=== PATIENT | male | born 1955 | race Caucasian/White ===

== ENCOUNTER → 2018-03-07 15:04 | Outpatient (CLI) | payer OTHER, SELFPAY ==
--- NOTE | 2018-03-07 | DI.RAD.S_ITS ---
PROCEDURE: XR CHEST 2V INDICATIONS: SOB/ASTHMA TECHNIQUE: 2 views of the chest were acquired. COMPARISON: None. FINDINGS: Surgical changes and devices: None. Lungs and pleura: No pleural effusions or pneumothorax. Lungs are clear. Mediastinum: Mediastinal contours are normal. Heart size is normal. Bones and chest wall: No suspicious bony abnormalities. Soft tissues appear unremarkable. IMPRESSION: No acute cardiopulmonary disease. Dictated by: Tree Do M.D. on 03/07/2018 at 16:58 Approved by: Tree Do M.D. on 03/07/2018 at 16:58
== END ==
PROVIDERS: PCP Family Medicine; Visit Provider Family Medicine
DX: R06.02 Shortness of breath (principal)
CPT/HCPCS: 71046

== ENCOUNTER 2019-03-24 23:30 | Emergency (ER) | payer MEDICARE, OTHER, SELFPAY ==
[2019-03-24 23:37] VITALS: BP 166/90; PULSE 57; RESP 16; TEMP 36.2; O2SAT 97; BMI 30.1
--- NOTE | 2019-03-24 23:39 | DI.RAD.S_ITS ---
PROCEDURE: XR CHEST 1V INDICATIONS: chest pain TECHNIQUE: One view of the chest was acquired. COMPARISON: [facility], CR, XR CHEST 2V, 03/07/2018, 15:07. FINDINGS: Surgical changes and devices: None. Lungs and pleura: Lungs are clear. No pleural effusions or pneumothorax. Mediastinum: Mediastinal contours appear normal. Heart size is normal. Bones and chest wall: No suspicious bony lesions. Overlying soft tissues appear unremarkable. IMPRESSION: Normal for age, source of current chest pain symptoms is not seen. Dictated by: Eloy Cortes M.D. on 03/25/2019 at 8:53 Approved by: Eloy Cortes M.D. on 03/25/2019 at 8:53
--- NOTE | 2019-03-24 23:42 | ED.CHESTPAIN ---
HPI - Chest Pain General Chief Complaint: Chest Pain Stated Complaint: chest hurts, left arm pain, dont feel very good Time Seen by Provider: 03/24/19 23:33 Source: patient Mode of arrival: Ambulatory History of Present Illness HPI narrative: Patient is a 63-year-old male with history of hypertension. He states that he is presenting with chest discomfort radiating to his left arm he has noticed off and on for a while definitely worse with exertion. [place] notices it more [place] Today it was so bad that he had to stop he took the dog out for a walk this evening which is when he told his of his symptoms and was brought to the ED. It persisted when he laid down for bed he initially thought it was acid reflux he took some Tums which did not help. MD complaint: chest pain Duration: constant Onset: during exertion Pain location: left chest Severity: moderate Quality: aching Pain radiation: LUE Relieving factors: rest Exacerbating factors: exertion Related Data Home Medications Medication Instructions Recorded Confirmed atorvastatin 20 mg tablet 20 mg PO DAILY 11/19/17 02/12/19 losartan 100 mg tablet 100 mg PO DAILY 11/19/17 02/12/19 metoprolol tartrate 75 mg tablet 75 mg PO BID 11/19/17 02/12/19 omeprazole 20 mg capsule,delayed 20 mg PO DAILY 11/19/17 02/12/19 release Resmed Airsense 10 CPAP #1 ea 02/12/19 02/12/19 Allergies Allergy/AdvReac Type Severity Reaction Status Date / Time No Known Drug Allergies Allergy Verified 02/12/19 09:37 Review of Systems Review of Systems Narrative: GENERAL: Denies chills, fatigue, malaise, fever, sweats, travel HEENT: Denies sinus pain, ear pain, sore throat, difficulty swallowing, neck pain RESPIRATORY: Denies dyspnea, cough, wheezing, hemoptysis, sputum. CARDIOVASCULAR: See HPI GASTROINTESTINAL: Denies nausea, vomiting, abdominal pain, diarrhea, constipation, melena. : Denies dysuria, frequency, incontinence, hematuria, urinary retention, flank pain. MUSCULOSKELETAL: Denies weakness, joint pain, or bony pain SKIN: No rash, no erythema, no pruritus NEUROLOGIC: Denies weakness, dizziness, headache, numbness, change in speech, confusion PSYCHIATRIC: No concerning psychosocial issues. 12 point review of systems is negative except for those stated above and HPI Patient History Medical History Medical History Central sleep apnea (Chronic ~2008) GERD (gastroesophageal reflux disease) (Chronic) Hyperlipidemia (Chronic) Hypertension (Chronic) Restless leg syndrome, familial, uncontrolled (Suspected) Social History Social History marital status: details: to Adriane Weiss household members: spouse lives independently: Yes caregiver/support person: No housing: [facility] [employer]; go to [place] in April for 5 months. Smoking Status: Former smoker alcohol intake: current alcohol intake frequency: 0-2 drinks per day Alcohol type: beer Substance Use Type: does not use Exam Initial Vital Signs Initial Vital Signs: Vital Signs Temperature 97.1 F L 03/24/19 23:37 Pulse Rate 57 L 03/24/19 23:37 Respiratory Rate 16 03/24/19 23:37 Blood Pressure 166/90 H 03/24/19 23:37 Pulse Oximetry 97 03/24/19 23:37 GENERAL: Well-appearing, well-nourished and in no acute distress. HEENT: Head atraumatic,EOMI, pupils reactive, face symmetric CARDIOVASCULAR: Regular rate and rhythm without murmurs, rubs or gallops. RESPIRATORY: Breath sounds equal bilaterally, no wheezes rales or rhonchi. ABDOMEN: Soft, nontender. Normoactive bowel sounds all 4 quadrants. No guarding or rebound EXTREMITIES: Normal range of motion, no clubbing or edema. Neurovascularly intact NEUROLOGICAL: Alert and oriented x4.Normal gait and speech. SKIN: Warm, dry, no laceration, no petechiae, no rashes or lesions. Course Orders Ordered: ED Orders 03/24/19 23:39 XR chest 1V Stat EKG-12 Lead Stat 03/24/19 23:43 Complete Blood Count AUTO DIFF Stat Comprehensive Metabolic Panel Stat Lipase Stat Partial Thromboplastin Time Stat Troponin & CK Cardiac Panel Stat 03/25/19 05:00 Hemoglobin and Hematocrit DAILY 03/25/19 05:45 PTT [Partial Thromboplastin Time] Q6H 03/25/19 11:45 PTT [Partial Thromboplastin Time] Q6H 03/25/19 17:45 PTT [Partial Thromboplastin Time] Q6H Heparin Sodium/Dextrose (Heparin Drip) 25,000 unit in 500 mls @ 20 mls/hr IV CONT CEASAR; Protocol Last Titration: 03/25/19 00:07 Dose: 1,000 units/hr, 20 mls/hr Documented by: Admin: 03/24/19 23:44 Dose: 1,000 units/hr, 20 mls/hr Documented by: MCKAYLA Sodium Chloride (Normal Saline 0.9%) 1,000 mls @ 150 mls/hr IV CONT CEASAR Last Infusion: 03/25/19 00:30 Dose: 150 mls/hr Documented by: Admin: 03/24/19 23:57 Dose: 150 mls/hr Documented by: MCKAYLA Nitroglycerin (Nitrostat) 0.4 mg SL [id number] PRN PRN Reason: Chest Pain Last Admin: 03/25/19 00:00 Dose: 0.4 mg Documented by: Admin: 03/24/19 23:56 Dose: 0.4 mg Documented by: MCKAYLA Discontinued Medications Aspirin (Aspirin Chew) 324 mg PO NOW ONE Stop: 03/24/19 23:40 Last Admin: 03/24/19 23:45 Dose: 324 mg Documented by: MCKAYLA Clopidogrel Bisulfate (Plavix) 600 mg PO NOW ONE Stop: 03/24/19 23:50 Last Admin: 03/24/19 23:57 Dose: 600 mg Documented by: MCKAYLA Heparin Sodium (Porcine) (Heparin) 5,000 unit IV NOW ONE Stop: 03/24/19 23:40 Last Admin: 03/24/19 23:44 Dose: 5,000 unit Documented by: MCKAYLA Vital Signs Vital signs: Vital Signs - 8 hr 03/24/19 23:37 03/25/19 00:01 Temperature 97.1 F L Pulse Rate 57 L 65 Respiratory Rate 16 20 Blood Pressure 166/90 H Blood Pressure [Left Arm] 140/95 H Pulse Oximetry 97 97 MDM - Chest Pain Lab Data Attestation: I reviewed the patient's lab results. Result diagrams: 03/24/19 23:43 03/24/19 23:43 Labs: Lab Results 03/24/19 03/24/19 03/24/19 Range/Units 23:43 23:43 23:43 WBC 10.3 (4.5-11.0) X10^3/uL RBC 5.39 (4.5-5.9) X10^6/uL Hgb 15.5 (13.5-17.5) g/dL Hct 45.7 (41-53) % MCV 84.7 (80-100) fL MCH 28.8 (26-34) PG MCHC 34.0 (30-36) % RDW 14.8 (11.6-14.8) % Plt Count 286 (150-400) X10^3/uL Neut % (Auto) 61.7 (50-75) % Lymph % (Auto) 25.3 (25-40) % [place] % (Auto) 8.9 (3-14) % Eos % (Auto) 2.8 (2-4) % Baso % (Auto) 1.3 (0-2) % Neut # (Auto) 6300 (0392-1058) /uL Lymph # (Auto) 2600 (8723-4780) /uL [place] # (Auto) 900 (0-900) /uL Eos # (Auto) 300 (0-450) /uL Baso # (Auto) 100 (0-100) /uL APTT 35 (26.4-36.2) SECONDS Sodium 143 (137-145) mmol/L Potassium 3.9 (3.4-5.1) mmol/L Chloride 102 (98-107) mmol/L Carbon Dioxide 29 (22-32) mmol/L BUN 20 (9-20) mg/dL Creatinine 1.40 H (0.66-1.25) mg/dL Estimated GFR 50.9 L (>60) mL/min BUN/Creatinine Ratio 14.3 (6-22) Glucose 116 H (80-110) mg/dL Calcium 9.1 (8.4-10.2) mg/dL Total Bilirubin 0.7 (0.2-1.3) mg/dL AST 33 (17-59) IU/L ALT 25 (21-72) IU/L Alkaline Phosphatase 67 (38-126) U/L Total Creatine Kinase 49 L (55-170) U/L CK-MB (CK-2) TNP CK-MB (CK-2) Rel Index TNP Troponin I 0.080 H (0.01-0.034) ng/mL Total Protein 6.8 (6.3-8.2) g/dL Albumin 4.5 (3.5-5.0) g/dL Globulin 2.3 (1.7-4.1) g/dL Albumin/Globulin Ratio 2.0 (1.0-2.8) Lipase 245 (23-300) U/L Imaging Data Chest x-ray: Attestation: I personally reviewed and interpreted this imaging study as follows: My impression: No acute cardiopulmonary process ECG Data Attestation: I personally reviewed and interpreted this ECG as follows: Prior ECG tracings: not available for review Interpretation: EKG 1. ST elevation noted in lead [address] depression in aVL lead 1 T-wave inversion in V2 Right-sided EKG no ST elevation appreciated in V4 Core Measures AMI core measures followed: Yes MDM Narrative Medical decision making narrative: [id number]-spoke with [facility] ED physician Dr. landa, updated on patient's symptoms test results patient coming stat to [facility] for STEMI 2349 Dr. Gil, filter press pumper updated on patient's symptoms test results were patient will be coming stat to [facility] Critical Care Time Critical Care Time Critical Care Time: Yes Total Critical Care Time: 30 Attestation: The high probability of a clinically significant, sudden or life threatening deterioration of the [cardiovascular] system(s) required my full and direct attention, intervention and personal management. The aggregate critical care time was 30 minutes. This time is in addition to time spent performing reported procedures but includes the following: [x] Data Review and interpretation [x] Patient assessment and monitoring of vital signs [x] Documentation [x] Medication orders and management Discharge Plan Departure Patient Disposition: [facility] Clinical Impression: ST elevation (STEMI) myocardial infarction Qualifiers: Involved coronary artery: right coronary artery Qualified Code(s): I21.11 - ST elevation (STEMI) myocardial infarction involving right coronary artery Discharge Date/Time: 03/25/19 00:07 Prescriptions: No Action atorvastatin 20 mg tablet 20 mg PO DAILY RF: 0 omeprazole 20 mg capsule,delayed release(DR/EC) 20 mg PO DAILY RF: 0 losartan 100 mg tablet 100 mg PO DAILY RF: 0 metoprolol tartrate 75 mg tablet 75 mg PO BID RF: 0 (DME) Resmed Airsense 10 CPAP Qty: 1 RF: 0 Referrals: Vinnie Sebastian MD [Primary Care Provider] -
[2019-03-24] MEDS: HEPARIN DRIP 25,000 UNIT/500 ML IV.SOLN 20 UNIT IV (23:44)
[2019-03-24] MEDS: HEPARIN 5,000 UNIT/ML VIAL 5000 UNIT IV (23:44)
[2019-03-24] MEDS: ASPIRIN 81 MG CHEW TAB 324 MG PO (23:45)
[2019-03-24] MEDS: NITROGLYCERIN 0.4 MG SL TAB SL (23:56)
[2019-03-24 23:57] LABS: Add Manual Diff / Slide Review NO; Basophils Absolute Auto 100 /uL (0-100); Basophils Percent Auto 1.3 % (0-2); Eosinophils Absolute Auto 300 /uL (0-450); Eosinophils Percent Auto 2.8 % (2-4); Hematocrit 45.7 % (41-53); Hemoglobin 15.5 g/dL (13.5-17.5); Lymphocytes Absolute Auto 2600 /uL (1100-4500); Lymphocytes Percent Auto 25.3 % (25-40); Mean Corpuscular Hemoglobin 28.8 PG (26-34); Mean Corpuscular Volume 84.7 fL (80-100); Monocytes Absolute Auto 900 /uL (0-900); Monocytes Percent Auto 8.9 % (3-14); Neutrophils Absolute Auto 6300 /uL (1500-7000); Neutrophils Percent Auto 61.7 % (50-75); Platelet Count 286 X10^3/uL (150-400); Red Blood Cell Count 5.39 X10^6/uL (4.5-5.9); Red Cell Distribution Width 14.8 % (11.6-14.8); White Blood Cell Count 10.3 X10^3/uL (4.5-11.0)
[2019-03-24] MEDS: CLOPIDOGREL 75 MG TABLET 600 MG PO (23:57)
[2019-03-24] MEDS: SODIUM CHLORIDE 0.9% 1,000 ML 150 ML IV (23:57)
[2019-03-25] MEDS: NITROGLYCERIN 0.4 MG SL TAB SL
[2019-03-25 00:01] VITALS: BP 140/95; PULSE 65; RESP 20; O2SAT 97
[2019-03-25 00:01] LABS: PTT Partial Thromboplastin Tim 35 SECONDS (26.4-36.2)
[2019-03-25 00:03] LABS: Alanine Aminotransferase 25 IU/L (21-72); Albumin 4.5 g/dL (3.5-5.0); Alkaline Phosphatase 67 U/L (38-126); Aspartate Aminotransferase 33 IU/L (17-59); BUN Creatinine Ratio 14.3 (6-22); Bilirubin Total 0.7 mg/dL (0.2-1.3); Blood Urea Nitrogen 20 mg/dL (9-20); Calcium 9.1 mg/dL (8.4-10.2); Carbon Dioxide 29 mmol/L (22-32); Chloride 102 mmol/L (98-107); Creatine Kinase 49 U/L (55-170); Estimated Glomerular Filt Rate 50.9 mL/min (>60); Globulin 2.3 g/dL (1.7-4.1); Glucose 116 mg/dL (80-110); HEMOLYSIS 20 (0-50); Lipase 245 U/L (23-300); Potassium 3.9 mmol/L (3.4-5.1); Sodium 143 mmol/L (137-145); Total Protein 6.8 g/dL (6.3-8.2)
--- NOTE | 2019-03-25 00:10 | PC.NURSE ---
After first dose SL ntg, pt reported pain decreased form 6 to 3. 2nd SL nitro given after 5 mintues.
== END 2019-03-25 00:07 | disposition short-term general hospital (02) ==
PROVIDERS: Emergency Provider Emergency Medicine; PCP Family Medicine
DX: I21.11 ST elevation (STEMI) myocardial infarction involving right coronary artery (principal)
CPT/HCPCS: 36415; 71045; 80053; 82550; 82553; 83690; 84484; 85025; 85730; 93005; 93041; 96365; 96375; 99283; 99291; J1644

== ENCOUNTER 2021-01-17 10:30 | Outpatient (RCR) | payer MEDICARE, OTHER, SELFPAY | END 2021-01-17 11:30 | LOC: CAR 10:30 | PROVIDERS: Referring Provider Family Medicine; Visit Provider Family Medicine | DX: Z95.5 Presence of coronary angioplasty implant and graft (principal) | CPT/HCPCS: 93798 ==

== ENCOUNTER 2021-01-17 11:03 | Emergency (ER) | payer MEDICARE, OTHER, SELFPAY ==
[2021-01-17] VITALS (30 sets, daily range): BP systolic 108–173; BP diastolic 59–92; PULSE 52–75; RESP 8–38; TEMP 36.7; O2SAT 93–98; BMI 28.7
[2021-01-17 11:54] LABS: Add Manual Diff / Slide Review NO; Basophils Absolute Auto 100 /uL (0-100); Basophils Percent Auto 2.3 % (0-2); Eosinophils Absolute Auto 300 /uL (0-450); Eosinophils Percent Auto 4.7 % (2-4); Hematocrit 43.3 % (41-53); Hemoglobin 14.7 g/dL (13.5-17.5); Lymphocytes Absolute Auto 1500 /uL (1100-4500); Lymphocytes Percent Auto 22.6 % (25-40); Mean Corpuscular Hemoglobin 28.7 PG (26-34); Mean Corpuscular Volume 84.6 fL (80-100); Monocytes Absolute Auto 600 /uL (0-900); Monocytes Percent Auto 9.5 % (3-14); Neutrophils Absolute Auto 4000 /uL (1500-7000); Neutrophils Percent Auto 60.9 % (50-75); Platelet Count 263 X10^3/uL (150-400); Red Blood Cell Count 5.11 X10^6/uL (4.5-5.9); Red Cell Distribution Width 14.2 % (11.6-14.8); White Blood Cell Count 6.6 X10^3/uL (4.5-11.0)
[2021-01-17 11:58] LABS: BUN Creatinine Ratio 16.1 (6-22); Blood Urea Nitrogen 25 mg/dL (9-20); Calcium 9.6 mg/dL (8.4-10.2); Carbon Dioxide 26 mmol/L (22-32); Chloride 106 mmol/L (98-107); Creatine Kinase 48 U/L (55-170); Estimated Glomerular Filt Rate 44.9 mL/min (>60); Glucose 118 mg/dL (80-110); HEMOLYSIS < 15 (0-50); Potassium 3.9 mmol/L (3.4-5.1); Sodium 140 mmol/L (137-145)
[2021-01-17 12:10] LABS: Troponin I < 0.012 ng/mL (0.01-0.034)
[2021-01-17 12:30] LABS: Thyroid Stimulating Hormone 1.35 uIU/mL (0.47-4.68)
[2021-01-17] MEDS: SODIUM CHLORIDE 0.9% 1,000 ML 150 ML IV (12:40)
--- NOTE | 2021-01-17 12:40 | ED.ARRPALP ---
HPI - Arrhythmia/Palpitations <Faustino Guadalupe DO - Last Filed: 01/18/21 18:20> General Chief Complaint: Arrhythmia/Palpitations Stated Complaint: near syncopy Time Seen by Provider: 01/17/21 11:38 Source: patient and RN notes reviewed Mode of arrival: Wheelchair Limitations: no limitations History of Present Illness HPI narrative: Patient is a 65-year-old male who was at cardiac rehab this morning. He has been a cardiac rehab since having stents placed in March of last year. He states he was on the treadmill in his normal state health when he became very lightheaded. He did have to step off the treadmill. There was a very short period of time where states he was very confused about what was going on. He did not fall. He recovered very quickly after the event. Did not necessarily describe any chest pain nor shortness of breath or palpitations during the time. He was sent over from cardiac rehab because on the monitor it appeared that he had approximately 12nd run of ventricular tachycardia. Patient is currently asymptomatic. Related Data Home Medications Medication Instructions Recorded Confirmed amlodipine 5 mg tablet 5 mg PO QAM 10/06/20 01/17/21 aspirin 81 mg tablet,delayed 81 mg PO QAM 10/06/20 01/17/21 release (Adult Low Dose Aspirin) hydrochlorothiazide 25 mg tablet 25 mg PO QAM 10/06/20 01/17/21 montelukast 10 mg tablet 10 mg PO QPM 10/06/20 01/17/21 pantoprazole 40 mg tablet,delayed 40 mg PO QPM 10/06/20 01/17/21 release atorvastatin 80 mg tablet 80 mg PO QPM 01/17/21 01/17/21 carvedilol 12.5 mg tablet 12.5 mg PO QAM AND QPM 01/17/21 01/17/21 losartan 50 mg tablet 50 mg PO QAM 01/17/21 01/17/21 Allergies Allergy/AdvReac Type Severity Reaction Status Date / Time No Known Drug Allergies Allergy Verified 10/06/20 15:35 Review of Systems <Faustino Guadalupe DO - Last Filed: 01/18/21 18:20> Constitutional Constitutional: Reports as per HPI Eyes Eyes: Reports system reviewed and no additional complaints, except as documented ENT Ears, Nose, Mouth, and Throat: Reports system reviewed and no additional complaints, except as documented Cardiovascular Cardiovascular: Reports as per HPI Respiratory Respiratory: Reports as per HPI Gastrointestinal Gastrointestinal: Reports system reviewed and no additional complaints, except as documented Genitourinary Genitourinary: Reports system reviewed and no additional complaints, except as documented Musculoskeletal Musculoskeletal: Reports system reviewed and no additional complaints, except as documented Integumentary/Breasts Skin/Breast: Reports system reviewed and no additional complaints, except as documented Neurologic Neurologic: Reports as per HPI Psychiatric Psychiatric: Reports system reviewed and no additional complaints, except as documented Hematologic/Lymphatic On Anticoagulants: No Allergic/Immunologic Allergic/Immunologic: Reports system reviewed and no additional complaints, except as documented Patient History <Faustino Guadalupe DO - Last Filed: 01/18/21 18:20> Medical History Central sleep apnea (~2008) GERD (gastroesophageal reflux disease) Hyperlipidemia Hypertension Restless leg syndrome Surgical History History of uvulopalatopharyngoplasty Social History marital status: details: to Adriane Marcelino P[place] household members: spouse lives independently: Yes caregiver/support person: No housing: house other: [facility]; go to [place] in April for 5 months. Smoking Status: Former smoker alcohol intake: current Smoking Status: Former smoker alcohol intake frequency: 0-2 drinks per day Alcohol type: beer Substance Use Type: does not use Exam <DO Taryn Mejia Last Filed: 01/18/21 18:20> Initial Vital Signs Initial Vital Signs: Vital Signs Pulse Rate 74 01/17/21 11:28 Pulse Oximetry 96 01/17/21 11:28 Const General: cooperative and healthy appearing [facility] Head: normal to inspection and normocephalic Eyes General: appearance normal, both eyes and all related structures Resp Effort & Inspection: normal respiratory effort Auscultation: clear to auscultation bilaterally Cardio Rate: regular rate Rhythm: regular rhythm GI Inspection: normal to inspection Skin General: no rashes or lesions noted Neuro General: patient alert, patient awake and moves all extremities Extrem General: normal to inspection and capillary refill normal Psych Appearance: grossly normal and well kempt <Carlos Montez DO - Last Filed: 01/19/21 01:16> Initial Vital Signs Initial Vital Signs: Vital Signs Pulse Rate 74 01/17/21 11:28 Pulse Oximetry 96 01/17/21 11:28 Course <Faustino Guadalupe, - Last Filed: 01/18/21 18:20> Orders Ordered: Discontinued Medications Amlodipine Besylate (Amlodipine 5 Mg Tablet) 5 mg PO NOW ONE Stop: 01/18/21 07:26 Last Admin: 01/18/21 08:32 Dose: 5 mg Documented by: SHAWANDA Aspirin (Aspirin Ec 81 Mg Tablet) 81 mg PO NOW ONE Stop: 01/18/21 07:27 Last Admin: 01/18/21 08:32 Dose: 81 mg Documented by: SHAWANDA Atorvastatin Calcium (Atorvastatin 20 Mg Tablet) 80 mg PO NOW ONE Stop: 01/17/21 22:36 Last Admin: 01/17/21 22:59 Dose: 80 mg Documented by: JUAN C Carvedilol (Carvedilol 12.5 Mg Tablet) 12.5 mg PO NOW ONE Stop: 01/17/21 22:36 Last Admin: 01/17/21 22:59 Dose: 12.5 mg Documented by: JUAN C Carvedilol (Carvedilol 12.5 Mg Tablet) 12.5 mg PO NOW ONE Stop: 01/18/21 07:29 Last Admin: 01/18/21 08:29 Dose: 12.5 mg Documented by: SHAWANDA Hydrochlorothiazide (Hydrochlorothiazide 25 Mg Tablet) 25 mg PO NOW ONE Stop: 01/18/21 07:28 Last Admin: 01/18/21 08:29 Dose: 25 mg Documented by: SHAWANDA Sodium Chloride (Normal Saline 0.9%) 1,000 mls @ 150 mls/hr IV CONT CEASAR Last Infusion: 01/17/21 20:07 Dose: 0 mls/hr Documented by: JUAN C Admin: 01/17/21 12:40 Dose: 150 mls/hr Documented by: DANE Losartan Potassium (Losartan 50 Mg Tablet) 50 mg PO NOW ONE Stop: 01/18/21 07:28 Last Admin: 01/18/21 08:29 Dose: 50 mg Documented by: SHAWANDA Montelukast Sodium (Montelukast 10 Mg Tablet) 10 mg PO NOW ONE Stop: 01/17/21 22:37 Last Admin: 01/17/21 22:59 Dose: 10 mg Documented by: JUAN C Pantoprazole Sodium (Pantoprazole Dr 20 Mg Tablet) 40 mg PO NOW ONE Stop: 01/17/21 22:36 Last Admin: 01/17/21 23:00 Dose: 40 mg Documented by: JUAN C Vital Signs Vital signs: Vital Signs - 8 hr 01/18/21 17:30 01/18/21 17:35 01/18/21 17:45 Pulse Rate 82 73 74 Respiratory Rate 16 16 Blood Pressure 145/74 H Pulse Oximetry 94 98 <Carlos Montez, DO - Last Filed: 01/19/21 01:16> Course Course Narrative: Patient received in sign-out from Dr. Guadalupe. I have performed an independent history and physical exam. He has been asymptomatic for the duration of his visit. He is resting comfortably. We are currently awaiting multiple opportunities for bed placement at outside facilities, hopefully [facility] will have an opening tomorrow. Labs have been ordered for the morning. Orders Ordered: Discontinued Medications Amlodipine Besylate (Amlodipine 5 Mg Tablet) 5 mg PO NOW ONE Stop: 01/18/21 07:26 Last Admin: 01/18/21 08:32 Dose: 5 mg Documented by: SHAWANDA Aspirin (Aspirin Ec 81 Mg Tablet) 81 mg PO NOW ONE Stop: 01/18/21 07:27 Last Admin: 01/18/21 08:32 Dose: 81 mg Documented by: SHAWANDA Atorvastatin Calcium (Atorvastatin 20 Mg Tablet) 80 mg PO NOW ONE Stop: 01/17/21 22:36 Last Admin: 01/17/21 22:59 Dose: 80 mg Documented by: JUAN C Carvedilol (Carvedilol 12.5 Mg Tablet) 12.5 mg PO NOW ONE Stop: 01/17/21 22:36 Last Admin: 01/17/21 22:59 Dose: 12.5 mg Documented by: JUAN C Carvedilol (Carvedilol 12.5 Mg Tablet) 12.5 mg PO NOW ONE Stop: 01/18/21 07:29 Last Admin: 01/18/21 08:29 Dose: 12.5 mg Documented by: SHAWANDA Hydrochlorothiazide (Hydrochlorothiazide 25 Mg Tablet) 25 mg PO NOW ONE Stop: 01/18/21 07:28 Last Admin: 01/18/21 08:29 Dose: 25 mg Documented by: SHAWANDA Sodium Chloride (Normal Saline 0.9%) 1,000 mls @ 150 mls/hr IV CONT CEASAR Last Infusion: 01/17/21 20:07 Dose: 0 mls/hr Documented by: JUAN C Admin: 01/17/21 12:40 Dose: 150 mls/hr Documented by: DANE Losartan Potassium (Losartan 50 Mg Tablet) 50 mg PO NOW ONE Stop: 01/18/21 07:28 Last Admin: 01/18/21 08:29 Dose: 50 mg Documented by: SHAWANDA Montelukast Sodium (Montelukast 10 Mg Tablet) 10 mg PO NOW ONE Stop: 01/17/21 22:37 Last Admin: 01/17/21 22:59 Dose: 10 mg Documented by: JUAN C Pantoprazole Sodium (Pantoprazole Dr 20 Mg Tablet) 40 mg PO NOW ONE Stop: 01/17/21 22:36 Last Admin: 01/17/21 23:00 Dose: 40 mg Documented by: JUAN C Reevaluation(s) Reevaluation #1: patient resting comfortably. HR in low 60s. Reevaluation #2: patient sleeping. Stable vitals. Time: 06:08 Vital Signs Vital signs: Vital Signs - 8 hr 01/18/21 17:30 01/18/21 17:35 01/18/21 17:45 Pulse Rate 82 73 74 Respiratory Rate 16 16 Blood Pressure 145/74 H Pulse Oximetry 94 98 MDM - Arrhythmia/Palpitations <Faustino Guadalupe DO - Last Filed: 01/18/21 18:20> Lab Data Attestation: I reviewed the patient's lab results. Result diagrams: 01/17/21 11:25 01/18/21 04:43 Labs: Lab Results 01/17/21 01/17/21 01/17/21 Range/Units 11:25 11:25 11:25 WBC 6.6 (4.5-11.0) X10^3/uL RBC 5.11 (4.5-5.9) X10^6/uL Hgb 14.7 (13.5-17.5) g/dL Hct 43.3 (41-53) % MCV 84.6 (80-100) fL MCH 28.7 (26-34) PG MCHC 34.0 (30-36) % RDW 14.2 (11.6-14.8) % Plt Count 263 (150-400) X10^3/uL Neut % (Auto) 60.9 (50-75) % Lymph % (Auto) 22.6 L (25-40) % [place] % (Auto) 9.5 (3-14) % Eos % (Auto) 4.7 H (2-4) % Baso % (Auto) 2.3 H (0-2) % Neut # (Auto) 4000 (7694-6212) /uL Lymph # (Auto) 1500 (1538-6642) /uL [place] # (Auto) 600 (0-900) /uL Eos # (Auto) 300 (0-450) /uL Baso # (Auto) 100 (0-100) /uL Sodium 140 (137-145) mmol/L Potassium 3.9 (3.4-5.1) mmol/L Chloride 106 (98-107) mmol/L Carbon Dioxide 26 (22-32) mmol/L BUN 25 H (9-20) mg/dL Creatinine 1.55 H (0.66-1.25) mg/dL Estimated GFR 44.9 L (>60) mL/min BUN/Creatinine Ratio 16.1 (6-22) Glucose 118 H (80-110) mg/dL Calcium 9.6 (8.4-10.2) mg/dL Magnesium 2.0 (1.6-2.3) mg/dL Total Creatine Kinase 48 L (55-170) U/L CK-MB (CK-2) TNP CK-MB (CK-2) Rel Index TNP Troponin I < 0.012 (0.01-0.034) ng/mL TSH 1.35 (0.47-4.68) uIU/mL SARS-CoV-2 (PCR) (Negative) 01/17/21 01/17/21 01/18/21 Range/Units 13:00 17:48 04:43 WBC (4.5-11.0) X10^3/uL RBC (4.5-5.9) X10^6/uL Hgb (13.5-17.5) g/dL Hct (41-53) % MCV (80-100) fL MCH (26-34) PG MCHC (30-36) % RDW (11.6-14.8) % Plt Count (150-400) X10^3/uL Neut % (Auto) (50-75) % Lymph % (Auto) (25-40) % [place] % (Auto) (3-14) % Eos % (Auto) (2-4) % Baso % (Auto) (0-2) % Neut # (Auto) (3032-0355) /uL Lymph # (Auto) (5284-0576) /uL [place] # (Auto) (0-900) /uL Eos # (Auto) (0-450) /uL Baso # (Auto) (0-100) /uL Sodium 141 (137-145) mmol/L Potassium 3.7 (3.4-5.1) mmol/L Chloride 109 H (98-107) mmol/L Carbon Dioxide 25 (22-32) mmol/L BUN 28 H (9-20) mg/dL Creatinine 1.54 H (0.66-1.25) mg/dL Estimated GFR 45.3 L (>60) mL/min BUN/Creatinine Ratio 18.2 (6-22) Glucose 109 (80-110) mg/dL Calcium 9.3 (8.4-10.2) mg/dL Magnesium (1.6-2.3) mg/dL Total Creatine Kinase 43 L (55-170) U/L CK-MB (CK-2) TNP CK-MB (CK-2) Rel Index TNP Troponin I < 0.012 (0.01-0.034) ng/mL TSH (0.47-4.68) uIU/mL SARS-CoV-2 (PCR) Negative (Negative) 01/18/21 Range/Units 04:43 WBC (4.5-11.0) X10^3/uL RBC (4.5-5.9) X10^6/uL Hgb (13.5-17.5) g/dL Hct (41-53) % MCV (80-100) fL MCH (26-34) PG MCHC (30-36) % RDW (11.6-14.8) % Plt Count (150-400) X10^3/uL Neut % (Auto) (50-75) % Lymph % (Auto) (25-40) % [place] % (Auto) (3-14) % Eos % (Auto) (2-4) % Baso % (Auto) (0-2) % Neut # (Auto) (3558-3213) /uL Lymph # (Auto) (0152-0379) /uL [place] # (Auto) (0-900) /uL Eos # (Auto) (0-450) /uL Baso # (Auto) (0-100) /uL Sodium (137-145) mmol/L Potassium (3.4-5.1) mmol/L Chloride (98-107) mmol/L Carbon Dioxide (22-32) mmol/L BUN (9-20) mg/dL Creatinine (0.66-1.25) mg/dL Estimated GFR (>60) mL/min BUN/Creatinine Ratio (6-22) Glucose (80-110) mg/dL Calcium (8.4-10.2) mg/dL Magnesium 2.0 (1.6-2.3) mg/dL Total Creatine Kinase (55-170) U/L CK-MB (CK-2) CK-MB (CK-2) Rel Index Troponin I (0.01-0.034) ng/mL TSH (0.47-4.68) uIU/mL SARS-CoV-2 (PCR) (Negative) Imaging Data Echocardiogram: Radiologist's Impresson: [address] [id number] ReportSigned Patient: Juan C Vega III [facility]#: [id number]: 1955cct:[id number]/Sex: 65 / MDate of Service: 01/18/21Loc: EDAccession Number: [id number] Procedure: EC echo doppler complete Ordering Provider: Faustino Guadalupe D.O. [place] +---------+ [facility] +---------+ : : [address] [place] [address] : : : : [place], [place] : : : : [id number] : : : : Phone: [phone] Echocardiogram Report + + :Name: JUAN C VEGA III Study Date: 01/18/2021 Height: 70 in : :[facility] ReadingLocation: Weight: 200 lb : : Gender: Male BSA: 2.1 m2 : :: 1955 Age: 65 yrs BP: 115/69 mmHg: :Reason For Study: V TACH : :Ordering Physician: EMMANUEL, : :FAUSTINO Performed By: Mariluz Kenny : :Referring: FAUSTINO GUADALUPE : + + Interpretation Summary The left ventricle is normal in size and wall thickness. Left ventricular systolic function is normal. The ejection fraction is estimated to be 60-65%. There has been no significant change since the previous exam. Inferolateral wall motion has improved as well as the basal inferior wall. The might be some residual hypokinesis along tghe basal inferior wall. The right ventricle is normal in size and function. The left atrium is mildly dilated. Right atrial size is normal. There is mild mitral regurgitation. There is no other significant valvular heart disease. The ascending aorta is mildly enlarged. Procedure: A two-dimensional transthoracic echocardiogram with color flow and Doppler was performed. The study quality was technically adequate. There is no prior echocardiogram noted for this patient. The patient was in sinus rhythm with heart rates between 56-79 bpm during the exam. Left Ventricle: The left ventricle is normal in size and wall thickness. Proximal septal thickening is noted. Left ventricular systolic function is normal. The ejection fraction is estimated to be 60-65%. There has been no significant change since the previous exam. Inferolateral wall motion has improved as well as the basal inferior wall. The might be some residual hypokinesis along tghe basal inferior wall. Diastolic function could not be accurately assessed due to contradictory data. Right Ventricle: The right ventricle is normal in size and function. Atria: The left atrium is mildly dilated. Right atrial size is normal. There is no Doppler evidence for an interatrial shunt. Mitral Valve: The mitral valve is normal in structure and function. There is mild mitral regurgitation. Aortic Valve: The aortic valve is trileaflet. The aortic valve opens well. There is no aortic valve stenosis. No aortic regurgitation is present. Tricuspid Valve: The tricuspid valve is normal in structure and function. There is mild tricuspid regurgitation. Pulmonary artery pressures cannot be estimated because of the lack of a measurable TR jet velocity but the IVC suggests a CVP of around 8 mmHg. Pulmonic Valve: The pulmonic valve leaflets are thin and pliable; valve motion is normal. There is trace pulmonic regurgitation. There is no other significant valvular heart disease. Great Vessels: The aortic root is normal size. The ascending aorta is mildly enlarged. The IVC is of normal diameter and collapses greater than 50% with a sniff. This suggests a low right atrial pressure of 3 mm Hg. Pericardium/ Pleura There is no pericardial effusion. There is no pleural effusion. MMode/2D Measurements & Calculations LVIDd: 5.2 cm LVOT diam: 2.0 cm LVIDs: 3.2 cm Ao root diam: 3.5 cm FS: 39.4 % asc Aorta Diam: 3.5 cm IVSd: 0.66 cm LVPWd: 0.99 cm LV lee. diameter/BSA (cm/m^2): 2.5 LV sys. diameter/BSA (cm/m^2): 1.5 LA A2 area: 24.3 cm2 RA long axis: 5.5 cm LA A4 area: 17.3 cm2 RA area: 16.0 cm2 LA length (vol): 4.5 cm RA vol: 39.2 ml LA vol: 79.2 ml RA : 18.8 ml/m2 LA vol index: 37.9 ml/m2 IVC diam: 2.2 cm RVD1 (basal): 3.9 cm TAPSE: 2.4 cm Doppler Measurements & Calculations Ao V2 max: 124.4 cm/sec LVOT Max Hari: 116.6 cm/sec Ao V2 mean: 96.4 cm/sec LV V1 max P.4 mmHg Ao max P.2 mmHg LV V1 VTI: 29.3 cm Ao mean P.9 mmHg DEVIN(I,D): 3.0 cm2 Ao V2 VTI: 30.8 cm DEVIN(V,D): 3.0 cm2 sev ratio: 0.95 DEVIN indexed to BSA (cm^2/m^2): 1.5 MV E max hari: 81.7 cm/sec PA V2 max: 86.5 cm/sec MV A max hari: 122.5 cm/sec PA V2 mean: 56.7 cm/sec MV E/A: 0.67 PA mean P.5 mmHg Med Peak E' Hari: 4.0 cm/sec PA pr(Accel): 3.6 mmHg E/E' med: 20.5 Lat Peak E' Hari: 8.4 cm/sec E/E' lat: 9.7 E/e' average: 15.1 MV dec time: 0.28 sec SV(LVOT): 93.8 ml Reading Physician:12:41 PM Perfusion stress test: Radiologist's Impresson: [address] [id number] ReportSigned Patient: Juan C Vega III [facility]#: [id number]: 1955cct:[id number]/Sex: 65 / MDate of Service: 01/18/21Loc: EDAccession Number: [id number] Procedure: NM herson perf SPECT rest & str Ordering Provider: Faustino Guadalupe D.O. PROCEDURE: NM HERSON PERF SPECT REST & STR Rest and exercise myocardial perfusion SPECT with gated imaging and ejection fraction RADIOPHARMACEUTICAL: 11.2 mCi Tc-99m sestamibi IV at rest and 24.2 mCi Tc-99m sestamibi IV at peak exercise. A one day-protocol was performed. INDICATIONS: V tach TECHNIQUE: Radiopharmaceutical was injected at peak stress test, and also at rest. SPECT images were obtained. SPECT myocardial perfusion images were displayed in short axis, horizontal long axis, and vertical long axis views. Gated images were reviewed using Auto[employer]ANT software. COMPARISON: None. CARDIAC STRESS: A standard Jason treadmill exercise tolerance test was performed by the patient under the supervision of an attending staff. The patient exercised for 10 minutes and 4 seconds; functional aerobic impairment (HARI) is -18%. Hemodynamic data: There is normal blood pressure and heart rate response to exercise stress. Patient achieved 78% of maximum predicted heart rate at peak exercise. Symptoms: Patient reported very slight chest pain at peak exercise that quickly resolved during early recovery. EKG: No diagnostic EKG changes of ischemia; no ectopy. FINDINGS: Raw data: There is good myocardial labeling by radiotracer. No significant motion artifacts. Left ventricle function: Gated images demonstrate normal left ventricle wall thickening. No segmental wall motion abnormality. No transient ischemic dilation; TID is 0.88 (normal less than 1.3). The left ventricle resting end-diastolic volume is 104 mL. Left ventricle stress ejection fraction is 76%; normal values are above 45%. Myocardial perfusion: There is a mildly intense fixed defect in the inferior wall that resolves with prone imaging, suggesting diaphgramatic attenuation artifact. No ischemia. IMPRESSION: Low risk, probably normal treadmill nuclear stress test 1) No perfusion evidence of ischemia or infarction. There is a mildly intense fixed defect in the inferior wall that resolves with prone imaging, suggesting diaphgramatic attenuation artifact. No ischemia. 2) Normal left ventricular size, wall motion, and systolic function (EF post stress 76%. 3) No ECG evidence of ischemia. No ectopy during the study. 4) Very slight chest pain at peak exercise that quickly resolved during early recovery. 5) Very good exercise tolerance (10.1 METs, HARI -18%). While only 78% of maximum predicted heart rate was achieved, stress test is adequate as double product [place] [address]. 6) No prior nuclear stress test available for comparison. Dictated by: Dipika Copeland MD on 01/18/2021 at 17:11 Approved by: Dipika Copeland MD on 01/18/2021 at 17:20 ECG Data Attestation: I personally reviewed and interpreted this ECG as follows: Interpretation: Sinus rhythm Ventricular rate of 70 Normal axis Normal QRS Normal QTC No ST T wave changes MDM Narrative Medical decision making narrative: Patient has been asymptomatic since arrival here to the emergency department. I do have the tracings when he was at cardiac rehab and did appear that he had episodes of ventricular tachycardia. I was told that this did correspond to the time that he was having symptoms. Labs are unremarkable. I did discuss the case with Dr rehman with cardiology who recommended the patient be transferred to [facility] for further evaluation. He did not recommend any anti rhythm aches currently. I did discuss this with the patient. Patient will board in the emergency department until bed availability becomes available. Care turned over to Dr. Montez to continue to evaluate overnight. Dr guadalupe; 01/18/21 received turned over from night provider and reviewed overnight events. Patient continues to remain asymptomatic. We contacted [facility] and they still have no bed availability. I did discuss the case again with Dr. copeland with Cardiology. After this discussion the patient obtain a echocardiogram which was relatively unremarkable. Also obtain stress testing which was low risk per Dr. copeland's report. The patient is been in the emergency department for approximately 30 hours and has had no significant ectopy on his monitor. Labs are unremarkable. After discussion with the applications programmer analyst the decision to be is to discontinue the transfer as he most likely will not need catheterization will discharge the patient home. We will make changes to medications per cardiology recommendation. Patient was given a copy of his testing that was done here in the emergency department was given strict return precautions. He expressed understanding and agreement. <Carlos Montez, - Last Filed: 01/19/21 01:16> Lab Data Labs: Lab Results 01/17/21 01/17/21 01/17/21 Range/Units 11:25 11:25 11:25 WBC 6.6 (4.5-11.0) X10^3/uL RBC 5.11 (4.5-5.9) X10^6/uL Hgb 14.7 (13.5-17.5) g/dL Hct 43.3 (41-53) % MCV 84.6 (80-100) fL MCH 28.7 (26-34) PG MCHC 34.0 (30-36) % RDW 14.2 (11.6-14.8) % Plt Count 263 (150-400) X10^3/uL Neut % (Auto) 60.9 (50-75) % Lymph % (Auto) 22.6 L (25-40) % [place] % (Auto) 9.5 (3-14) % Eos % (Auto) 4.7 H (2-4) % Baso % (Auto) 2.3 H (0-2) % Neut # (Auto) 4000 (7806-8183) /uL Lymph # (Auto) 1500 (2973-0259) /uL [place] # (Auto) 600 (0-900) /uL Eos # (Auto) 300 (0-450) /uL Baso # (Auto) 100 (0-100) /uL Sodium 140 (137-145) mmol/L Potassium 3.9 (3.4-5.1) mmol/L Chloride 106 (98-107) mmol/L Carbon Dioxide 26 (22-32) mmol/L BUN 25 H (9-20) mg/dL Creatinine 1.55 H (0.66-1.25) mg/dL Estimated GFR 44.9 L (>60) mL/min BUN/Creatinine Ratio 16.1 (6-22) Glucose 118 H (80-110) mg/dL Calcium 9.6 (8.4-10.2) mg/dL Magnesium 2.0 (1.6-2.3) mg/dL Total Creatine Kinase 48 L (55-170) U/L CK-MB (CK-2) TNP CK-MB (CK-2) Rel Index TNP Troponin I < 0.012 (0.01-0.034) ng/mL TSH 1.35 (0.47-4.68) uIU/mL SARS-CoV-2 (PCR) (Negative) 01/17/21 01/17/21 01/18/21 Range/Units 13:00 17:48 04:43 WBC (4.5-11.0) X10^3/uL RBC (4.5-5.9) X10^6/uL Hgb (13.5-17.5) g/dL Hct (41-53) % MCV (80-100) fL MCH (26-34) PG MCHC (30-36) % RDW (11.6-14.8) % Plt Count (150-400) X10^3/uL Neut % (Auto) (50-75) % Lymph % (Auto) (25-40) % [place] % (Auto) (3-14) % Eos % (Auto) (2-4) % Baso % (Auto) (0-2) % Neut # (Auto) (3845-3637) /uL Lymph # (Auto) (4086-1654) /uL [place] # (Auto) (0-900) /uL Eos # (Auto) (0-450) /uL Baso # (Auto) (0-100) /uL Sodium 141 (137-145) mmol/L Potassium 3.7 (3.4-5.1) mmol/L Chloride 109 H (98-107) mmol/L Carbon Dioxide 25 (22-32) mmol/L BUN 28 H (9-20) mg/dL Creatinine 1.54 H (0.66-1.25) mg/dL Estimated GFR 45.3 L (>60) mL/min BUN/Creatinine Ratio 18.2 (6-22) Glucose 109 (80-110) mg/dL Calcium 9.3 (8.4-10.2) mg/dL Magnesium (1.6-2.3) mg/dL Total Creatine Kinase 43 L (55-170) U/L CK-MB (CK-2) TNP CK-MB (CK-2) Rel Index TNP Troponin I < 0.012 (0.01-0.034) ng/mL TSH (0.47-4.68) uIU/mL SARS-CoV-2 (PCR) Negative (Negative) 01/18/21 Range/Units 04:43 WBC (4.5-11.0) X10^3/uL RBC (4.5-5.9) X10^6/uL Hgb (13.5-17.5) g/dL Hct (41-53) % MCV (80-100) fL MCH (26-34) PG MCHC (30-36) % RDW (11.6-14.8) % Plt Count (150-400) X10^3/uL Neut % (Auto) (50-75) % Lymph % (Auto) (25-40) % [place] % (Auto) (3-14) % Eos % (Auto) (2-4) % Baso % (Auto) (0-2) % Neut # (Auto) (1818-7559) /uL Lymph # (Auto) (3904-5508) /uL [place] # (Auto) (0-900) /uL Eos # (Auto) (0-450) /uL Baso # (Auto) (0-100) /uL Sodium (137-145) mmol/L Potassium (3.4-5.1) mmol/L Chloride (98-107) mmol/L Carbon Dioxide (22-32) mmol/L BUN (9-20) mg/dL Creatinine (0.66-1.25) mg/dL Estimated GFR (>60) mL/min BUN/Creatinine Ratio (6-22) Glucose (80-110) mg/dL Calcium (8.4-10.2) mg/dL Magnesium 2.0 (1.6-2.3) mg/dL Total Creatine Kinase (55-170) U/L CK-MB (CK-2) CK-MB (CK-2) Rel Index Troponin I (0.01-0.034) ng/mL TSH (0.47-4.68) uIU/mL SARS-CoV-2 (PCR) (Negative) Discharge Plan Departure Patient Disposition: Home Clinical Impression: Ventricular tachycardia Instructions: DI for Ventricular Tachycardia Activity Restrictions/Additional Instructions: You were given a copy of your reports that were done today. Please keep these safe intake them to your next Cardiology visit. Please contact your primary doctor and also your applications programmer analyst for follow-up. Pharmaceutical Salesperson today recommended these changes tear medicines Amlodipine 5 mg a day (this is what you are currently taking please continue to take it as directed) Aspirin 81 mg a day (this is what you are currently taking please continue to take it as directed) Atorvastatin 80 mg at night (this is what you are currently taking please continue to take it as directed) Carvedilol 12.5 mg 2 times a day (applications programmer analyst recommends that you take 18.75 mg (1.5 tablets) in the morning and 12.5 mg (1 tablet) at night) HCTZ/hydrochlorothiazide 25 mg a day (applications programmer analyst recommends that you decrease this to 12.5 mg (1/2 tablet) a day) Losartan 25 mg a day (applications programmer analyst recommend that you increase this to 50 mg (2 tablets) at night) Pantoprazole 40 mg a day (continue to take this as directed) Montelukast 10 mg tablet a day (continue to take this as directed) Please return to the emergency department for any new or worsening symptoms Prescriptions: No Action atorvastatin 80 mg tablet 80 mg PO QPM RF: 0 carvedilol 12.5 mg tablet 12.5 mg PO QAM AND QPM RF: 0 losartan 50 mg tablet 50 mg PO QAM RF: 0 amlodipine 5 mg tablet 5 mg PO QAM RF: 0 aspirin [Adult Low Dose Aspirin] 81 mg tablet,delayed release (DR/EC) 81 mg PO QAM RF: 0 hydrochlorothiazide 25 mg tablet 25 mg PO QAM RF: 0 montelukast 10 mg tablet 10 mg PO QPM RF: 0 pantoprazole 40 mg tablet,delayed release (DR/EC) 40 mg PO QPM RF: 0
[2021-01-17 13:22] LABS: COVID19 -Nasal RAPID Negative (Negative)
[2021-01-17 18:16] LABS: Creatine Kinase 43 U/L (55-170)
[2021-01-17 18:29] LABS: Troponin I < 0.012 ng/mL (0.01-0.034)
--- NOTE | 2021-01-17 19:02 | PC.NURSE ---
Patient states that he is tired of waiting for transfer and wants to know if he can go home. I sat down and explained v-tach to him, using the strips that had been recorded during his episode at cardiac rehab. Pt decides to stay and await transfer.
[2021-01-17] MEDS: ATORVASTATIN 20 MG TABLET 80 MG PO (22:59)
[2021-01-17] MEDS: carvediloL 12.5 MG TABLET PO (22:59)
[2021-01-17] MEDS: MONTELUKAST 10 MG TABLET PO (22:59)
[2021-01-17] MEDS: PANTOPRAZOLE DR 20 MG TABLET 40 MG PO (23:00)
[2021-01-18] VITALS (44 sets, daily range): BP systolic 115–162; BP diastolic 68–88; PULSE 53–82; RESP 1–39; O2SAT 94–98
[2021-01-18 05:02] LABS: BUN Creatinine Ratio 18.2 (6-22); Blood Urea Nitrogen 28 mg/dL (9-20); Calcium 9.3 mg/dL (8.4-10.2); Carbon Dioxide 25 mmol/L (22-32); Chloride 109 mmol/L (98-107); Estimated Glomerular Filt Rate 45.3 mL/min (>60); Glucose 109 mg/dL (80-110); HEMOLYSIS < 15 (0-50); Potassium 3.7 mmol/L (3.4-5.1); Sodium 141 mmol/L (137-145)
[2021-01-18] MEDS: LOSARTAN 50 MG TABLET PO (08:29)
[2021-01-18] MEDS: carvediloL 12.5 MG TABLET PO (08:29)
[2021-01-18] MEDS: hydroCHLOROthiazide 25 MG TABLET PO (08:29)
[2021-01-18] MEDS: ASPIRIN EC 81 MG TABLET PO (08:32)
[2021-01-18] MEDS: AMLODIPINE 5 MG TABLET PO (08:32)
--- NOTE | 2021-01-18 08:43 | DI.ECHO.S_ITS ---
[facility]---------+ [facility] +---------+ : : [id number] [address] : : : : [id number] : : : : Phone: [phone]+ Echocardiogram Report + + :Name: DANNA VEGA III Study Date: 01/18/2021 Height: 70 in : :[facility] ReadingLocation: Weight: 200 lb : : Gender: Male BSA: 2.1 m2 : :: 1955 Age: 65 yrs BP: 115/69 mmHg: :Reason For Study: V TACH : :Ordering Physician: EMMANUEL, : :FAUSTINO Performed By: Mariluz Kenny : :Referring: FAUSTINO BENITEZ : + + Interpretation Summary The left ventricle is normal in size and wall thickness. Left ventricular systolic function is normal. The ejection fraction is estimated to be 60-65%. There has been no significant change since the previous exam. Inferolateral wall motion has improved as well as the basal inferior wall. The might be some residual hypokinesis along tghe basal inferior wall. The right ventricle is normal in size and function. The left atrium is mildly dilated. Right atrial size is normal. There is mild mitral regurgitation. There is no other significant valvular heart disease. The ascending aorta is mildly enlarged. Procedure: A two-dimensional transthoracic echocardiogram with color flow and Doppler was performed. The study quality was technically adequate. There is no prior echocardiogram noted for this patient. The patient was in sinus rhythm with heart rates between 56-79 bpm during the exam. Left Ventricle: The left ventricle is normal in size and wall thickness. Proximal septal thickening is noted. Left ventricular systolic function is normal. The ejection fraction is estimated to be 60-65%. There has been no significant change since the previous exam. Inferolateral wall motion has improved as well as the basal inferior wall. The might be some residual hypokinesis along tghe basal inferior wall. Diastolic function could not be accurately assessed due to contradictory data. Right Ventricle: The right ventricle is normal in size and function. Atria: The left atrium is mildly dilated. Right atrial size is normal. There is no Doppler evidence for an interatrial shunt. Mitral Valve: The mitral valve is normal in structure and function. There is mild mitral regurgitation. Aortic Valve: The aortic valve is trileaflet. The aortic valve opens well. There is no aortic valve stenosis. No aortic regurgitation is present. Tricuspid Valve: The tricuspid valve is normal in structure and function. There is mild tricuspid regurgitation. Pulmonary artery pressures cannot be estimated because of the lack of a measurable TR jet velocity but the IVC suggests a CVP of around 8 mmHg. Pulmonic Valve: The pulmonic valve leaflets are thin and pliable; valve motion is normal. There is trace pulmonic regurgitation. There is no other significant valvular heart disease. Great Vessels: The aortic root is normal size. The ascending aorta is mildly enlarged. The IVC is of normal diameter and collapses greater than 50% with a sniff. This suggests a low right atrial pressure of 3 mm Hg. Pericardium/ Pleura There is no pericardial effusion. There is no pleural effusion. MMode/2D Measurements & Calculations LVIDd: 5.2 cm LVOT diam: 2.0 cm LVIDs: 3.2 cm Ao root diam: 3.5 cm FS: 39.4 % asc Aorta Diam: 3.5 cm IVSd: 0.66 cm LVPWd: 0.99 cm LV lee. diameter/BSA (cm/m^2): 2.5 LV sys. diameter/BSA (cm/m^2): 1.5 LA A2 area: 24.3 cm2 RA long axis: 5.5 cm LA A4 area: 17.3 cm2 RA area: 16.0 cm2 LA length (vol): 4.5 cm RA vol: 39.2 ml LA vol: 79.2 ml RA : 18.8 ml/m2 LA vol index: 37.9 ml/m2 IVC diam: 2.2 cm RVD1 (basal): 3.9 cm TAPSE: 2.4 cm Doppler Measurements & Calculations Ao V2 max: 124.4 cm/sec LVOT Max Hari: 116.6 cm/sec Ao V2 mean: 96.4 cm/sec LV V1 max P.4 mmHg Ao max P.2 mmHg LV V1 VTI: 29.3 cm Ao mean P.9 mmHg DEVIN(I,D): 3.0 cm2 Ao V2 VTI: 30.8 cm DEVIN(V,D): 3.0 cm2 sev ratio: 0.95 DEVIN indexed to BSA (cm^2/m^2): 1.5 MV E max hari: 81.7 cm/sec PA V2 max: 86.5 cm/sec MV A max hari: 122.5 cm/sec PA V2 mean: 56.7 cm/sec MV E/A: 0.67 PA mean P.5 mmHg Med Peak E' Hari: 4.0 cm/sec PA pr(Accel): 3.6 mmHg E/E' med: 20.5 Lat Peak E' Hari: 8.4 cm/sec E/E' lat: 9.7 E/e' average: 15.1 MV dec time: 0.28 sec SV(LVOT): 93.8 ml Reading Physician:12:41 PM
--- NOTE | 2021-01-18 08:43 | DI.NM.S_ITS ---
PROCEDURE: NM BRITTANI PERF SPECT REST & STR Rest and exercise myocardial perfusion SPECT with gated imaging and ejection fraction RADIOPHARMACEUTICAL: 11.2 mCi Tc-99m sestamibi IV at rest and 24.2 mCi Tc-99m sestamibi IV at peak exercise. A one day-protocol was performed. INDICATIONS: V tach TECHNIQUE: Radiopharmaceutical was injected at peak stress test, and also at rest. SPECT images were obtained. SPECT myocardial perfusion images were displayed in short axis, horizontal long axis, and vertical long axis views. Gated images were reviewed using [employer] software. COMPARISON: None. CARDIAC STRESS: A standard Jason treadmill exercise tolerance test was performed by the patient under the supervision of an attending staff. The patient exercised for 10 minutes and 4 seconds; functional aerobic impairment (HARI) is -18%. Hemodynamic data: There is normal blood pressure and heart rate response to exercise stress. Patient achieved 78% of maximum predicted heart rate at peak exercise. Symptoms: Patient reported very slight chest pain at peak exercise that quickly resolved during early recovery. EKG: No diagnostic EKG changes of ischemia; no ectopy. FINDINGS: Raw data: There is good myocardial labeling by radiotracer. No significant motion artifacts. Left ventricle function: Gated images demonstrate normal left ventricle wall thickening. No segmental wall motion abnormality. No transient ischemic dilation; TID is 0.88 (normal less than 1.3). The left ventricle resting end-diastolic volume is 104 mL. Left ventricle stress ejection fraction is 76%; normal values are above 45%. Myocardial perfusion: There is a mildly intense fixed defect in the inferior wall that resolves with prone imaging, suggesting diaphgramatic attenuation artifact. No ischemia. IMPRESSION: Low risk, probably normal treadmill nuclear stress test 1) No perfusion evidence of ischemia or infarction. There is a mildly intense fixed defect in the inferior wall that resolves with prone imaging, suggesting diaphgramatic attenuation artifact. No ischemia. 2) Normal left ventricular size, wall motion, and systolic function (EF post stress 76%. 3) No ECG evidence of ischemia. No ectopy during the study. 4) Very slight chest pain at peak exercise that quickly resolved during early recovery. 5) Very good exercise tolerance (10.1 METs, HARI -18%). While only 78% of maximum predicted heart rate was achieved, stress test is adequate as double product over [address]89. 6) No prior nuclear stress test available for comparison. Dictated by: Dipika Mayers MD on 01/18/2021 at 17:11 Approved by: Dipika Mayers MD on 01/18/2021 at 17:20
--- NOTE | 2021-01-18 12:42 | PC.NURSE ---
Pt transported by wheelchair off unit to stress test with tech.
--- NOTE | 2021-01-18 14:19 | PC.NURSE ---
Patient requesting food, Dr Guadalupe would like to wait for final read of stress test.
== END 2021-01-18 17:45 | disposition home or self-care (01) ==
PROVIDERS: Emergency Medicine; Emergency Provider Emergency Medicine
DX: I47.2 Ventricular tachycardia (principal); Z20.822 Contact with and (suspected) exposure to COVID-19
CPT/HCPCS: 36415; 78452; 80048; 82550; 83735; 84443; 84484; 85025; 87635; 93005; 93017; 93306; 93798; 96360; 96361; 99284; C9803; A9502

== ENCOUNTER → 2021-03-17 11:18 | Outpatient (CLI) | payer MEDICARE, OTHER, SELFPAY ==
[2021-03-17 13:17] LABS: Ferritin 92 ng/mL (18-464)
== END ==
PROVIDERS: Referring Provider Nurse Practitioner Family; Visit Provider Nurse Practitioner Family
DX: G25.81 Restless legs syndrome (principal)
CPT/HCPCS: 36415; 82728